=== PATIENT | male | born 1995 | race Caucasian/White ===

== ENCOUNTER 2017-03-26 11:39 | Emergency (ER) | payer BC ==
[2017-03-26 13:59] VITALS: BP 114/79
--- NOTE | 2017-03-26 14:53 | UC ---
Throat Pain/Nasal [place] HPI - HPI Summary HPI Summary: 6 days ago developed sore throat, vomited x 1, had temp to 100.5, malaise. Coughing and sore throat are resolving. Yesterday, had exposure to hot oven being cleaned, and developed right eye irritation. Awoke with drainage this morning. Vision normal, no photophobia. Right ear has felt weird and full since loud noise exposure (whistle) about a month ago. Tinnitus resolved, ear pops. no discharge, no vertigo, no headache. - History of Current Complaint Chief Complaint: UCGeneralIllness Stated Complaint: RED EYE/R EAR PAIN/SORE THROAT Time Seen by Provider: 03/26/17 14:43 Hx Obtained From: Patient Onset/Duration: Gradual Onset, Lasting Days - respiratory symptoms for 6 days, eye symptoms x 1 Severity: Moderate Cough: Nonproductive Associated Signs & Symptoms: Positive: Dysphagia - Allergies/Home Medications Allergies/Adverse Reactions: Allergies Allergy/AdvReac Type Severity Reaction Status Date / Time Bee Venom Allergy Mild Swelling Verified 03/26/17 12:01 No Known Allergies Allergy Verified 03/26/17 12:01 PMH/Surg Hx/FS Hx/Imm Hx Previously Healthy: Yes - Surgical History Surgical History: Yes Surgery Procedure, Year, and Place: oral surgery - Family History Known Family History: Positive: None - parents living and healthy - Social History Occupation: Student - senior at [employer]. Lives: Dormitory/Roommates Alcohol Use: Rare Substance Use Type: None Smoking Status (MU): Never Smoked Tobacco Review of Systems Constitutional: Other - decreased appetite. Skin: Negative Eyes: Negative ENT: Sore Throat, Ear Ache Respiratory: Cough Cardiovascular: Negative Gastrointestinal: Negative Genitourinary: Negative Motor: Negative Neurovascular: Negative Musculoskeletal: Negative Neurological: Negative Psychological: Negative Is Patient Immunocompromised?: No All Other Systems Reviewed And Are Negative: Yes Physical Exam Triage Information Reviewed: Yes Appearance: Well-Appearing, Thin Vital Signs: Initial Vital Signs Temp 98.3 F 03/26/17 11:56 Pulse 78 03/26/17 11:56 Resp 20 03/26/17 11:56 BP 102/71 03/26/17 11:56 Pulse Ox 100 03/26/17 11:56 Eyes: Positive: Conjunctiva Inflamed - right eye injected ++, with ENT: Positive: Pharyngeal erythema, Tonsillar swelling - mild, no exudate. Neck: Positive: Nontender, No Lymphadenopathy Respiratory: Positive: Lungs clear, Normal breath sounds Neurological Exam: Normal Neurological: Positive: Alert, Muscle Tone Normal Psychological Exam: Normal Skin Exam: Normal Throat Pain/Nasal Course/Dx - Course Course Of Treatment: right eye conjunctivitis will be treated with drops. Continue symptomatic tx of resolving respiratory illness. Discussed contagion and ways to decrease spread. - Differential Dx/Diagnosis Differential Diagnosis/HQI/PQRI: Influenza, Otitis Media, Tonsillitis, URI, Other - conjunctvitis. Provider Diagnoses: right eye acute bacterial conjunctivitis Discharge - Discharge Plan Condition: Stable Disposition: HOME Prescriptions: Tobramycin 0.3% OPHTH.DARRON* 1 drop RIGHT EYE Q4H #1 btl Patient Education Materials: Conjunctivitis (ED) Referrals: Binu Garcia MD [Primary Care Provider] - Additional Instructions: compress your eyes with a clean warm cloth, and apply 2 drops of medicated drops in the right eye every 3 to 4 hours today while awake, then 4 times daily for the next 4 days. Continue symptomatic treatment of your respiratory illness with fluids, rest, ibuprofen as needed.
== END 2017-03-26 15:25 | disposition home or self-care (01) ==
LOC: UCEAST 11:39
DX: H10.89 Other conjunctivitis (principal)
CPT/HCPCS: 99212; G0463

== ENCOUNTER 2017-08-22 01:54 | Emergency (ER) | payer BC ==
[2017-08-22] MEDS ORDERED: NS 0.9% 1000 ML* 1,000 ML IV ONE (04:03)
[2017-08-22] MEDS ORDERED: Metoprolol Tartrate IV* 1 MG/ML 5 ML VIAL IV ONE (04:04)
[2017-08-22] MEDS ORDERED: Aspirin 81 mg CHEW TAB* 81 MG TAB.CHEW PO ONE (04:05)
[2017-08-22 04:36] LABS: ABS Basophils 0 10^3/ul (0-0.2); ABS Eosinophils 0.1 10^3/ul (0-0.6); ABS Lymphocytes 2.2 10^3/ul (1.0-4.8); ABS Monocytes 0.7 10^3/ul (0-0.8); ABS Neutrophils 3.9 10^3/ul (1.5-7.7); ABS Nucleated RBC 0 10^3/ul; Eosinophil % 0.9 % (0-6); Hematocrit 42 % (42-52); Hemoglobin 14.7 g/dl (14.0-18.0); Lymphocyte % 32.4 % (25-47); Mean Corpuscular HGB Conc 35 g/dl (31-36); Mean Corpuscular Hemoglobin 30 pg (27-31); Mean Corpuscular Volume 84 fL (80-94); Mean Platelet Volume 8.5 um3 (7.4-10.4); Nucleated Red Blood Cells % 0; Platelet Count 272 10^3/ul (150-450); Red Blood Count 4.96 10^6/ul (4.0-5.4); Red Cell Distribution Width 13 % (10.5-15); White Blood Count 6.9 10^3/ul (3.5-10.8)
[2017-08-22] MEDS ORDERED: Metoprolol Tartrate TAB* 25 MG PO ONE (04:39)
[2017-08-22] MEDS ORDERED: Metoprolol Tartrate TAB* 25 MG ONE (04:41)
[2017-08-22 04:52] LABS: EGFR Non-African American 105.2 (>60)
[2017-08-22 06:19] VITALS: BP 131/70
--- NOTE | 2017-08-22 06:31 | ED ---
Ronnie Pak Nikita, scribed for Fidel Pitts MD on 08/22/17 at 0403 . HPI Chest Pain - HPI Summary HPI Summary: This patient is a 21 year old M presenting to ED with a chief complaint of generalized CP since 1 week ago. The CC is described as intermittent, cramping, and sharp after dinner at 1800 last night. The patient rates the pain 3/10 in severity. Symptoms aggravated by sitting and standing. Symptoms alleviated by nothing. Patient reports palpitations (1 week ago, beating harder, skipping beats, and slightly tachycardic), anxiety, and SOB with the palpitations. Patient denies SOB with the CP and diarrhea. - History of Current Complaint Chief Complaint: EDChestWallPain Time Seen by Provider: 08/22/17 03:42 Hx Obtained From: Patient Onset/Duration: Started Weeks Ago Timing: Intermittent Initial Severity: Mild Current Severity: Mild Pain Intensity: 3 Pain Scale Used: 0-10 Numeric Character: Sharp/Stabbing, Other: - carmping Aggravating Factor(s): Other: - sitting and standing Alleviating Factor(s): Nothing Associated Signs and Symptoms: Positive: Other: - Patient reports palpitations ( 1 week ago, beating harder, skipping beats, and slightly tachycardic), anxiety, and SOB with the palpitations. Patient denies SOB with the CP and diarrhea. - Allergy/Home Medications Allergies/Adverse Reactions: Allergies Allergy/AdvReac Type Severity Reaction Status Date / Time bee venom protein (honey bee) Allergy Swelling Verified 08/22/17 02:09 PMH/Surg Hx/FS Hx/Imm Hx Endocrine/Hematology History: Denies: Hx Diabetes, Hx Thyroid Disease Cardiovascular History: Denies: Hx Hypertension Respiratory History: Denies: Hx Asthma, Hx Chronic Obstructive Pulmonary Disease (COPD) GI History: Denies: Hx Ulcer - Surgical History Surgery Procedure, Year, and Place: oral surgery Infectious Disease History: No Infectious Disease History: Denies: Hx Clostridium Difficile, Hx Hepatitis, Hx Human Immunodeficiency Virus (HIV), Hx Shingles, Hx Tuberculosis, Hx Known/Suspected VRE, Hx Known/ Suspected VRSA, History Other Infectious Disease, Traveled Outside the [place] in Last 30 Days - Family History Known Family History: Positive: Cardiac Disease - Social History Alcohol Use: Rare Substance Use Type: Reports: None Smoking Status (MU): Never Smoked Tobacco Review of Systems Positive: Palpitations - 1 week ago, beating harder, skipping beats, and slightly tachycardic, Chest Pain - intermittent, cramping, and sharp after dinner at 1800 last night Positive: Shortness Of Breath - with palpitations, not with CP Negative: Diarrhea Positive: Anxious All Other Systems Reviewed And Are Negative: Yes Physical Exam - Summary Physical Exam Summary: Appearance: Well appearing, no pain distress Skin: warm, dry, reflects adequate perfusion Head/face: normal Eyes: EOMI, TOBI ENT: normal Neck: supple, non-tender Respiratory: CTA, breath sounds present Cardiovascular: RRR, pulses symmetrical, No extra beats on the monitor Abdomen: non-tender, soft Bowel Sounds: present Musculoskeletal: normal, strength/ROM intact Neuro: normal, sensory motor intact, A&Ox3 No thyromegaly nodules. Triage Information Reviewed: Yes Vital Signs On Initial Exam: Initial Vitals Temp Pulse Resp BP Pulse Ox 97.8 F 82 18 137/82 100 08/22/17 02:06 08/22/17 02:06 08/22/17 02:06 08/22/17 02:06 08/22/17 02:06 Vital Signs Reviewed: Yes Diagnostics - Vital Signs Vital Signs Temp Pulse Resp BP Pulse Ox 08/22/17 02:06 97.8 F 82 18 137/82 100 - Laboratory Lab Results: Lab Results 08/22/17 08/22/17 08/22/17 Range/Units 04:20 04:20 04:20 WBC 6.9 (3.5-10.8) 10^3/ul RBC 4.96 (4.0-5.4) 10^6/ul Hgb 14.7 (14.0-18.0) g/dl Hct 42 (42-52) % MCV 84 (80-94) fL MCH 30 (27-31) pg MCHC 35 (31-36) g/dl RDW 13 (10.5-15) % Plt Count 272 (150-450) 10^3/ul MPV 8.5 (7.4-10.4) um3 Neut % (Auto) 56.3 (38-83) % Lymph % (Auto) 32.4 (25-47) % [facility] % (Auto) 9.7 H (0-7) % Eos % (Auto) 0.9 (0-6) % Baso % (Auto) 0.7 (0-2) % Absolute Neuts (auto) 3.9 (1.5-7.7) 10^3/ul Absolute Lymphs (auto) 2.2 (1.0-4.8) 10^3/ul Absolute Monos (auto) 0.7 (0-0.8) 10^3/ul Absolute Eos (auto) 0.1 (0-0.6) 10^3/ul Absolute Basos (auto) 0 (0-0.2) 10^3/ul Absolute Nucleated RBC 0 10^3/ul Nucleated RBC % 0 D-Dimer, Quantitative < 200 (Less Than 230) ng/mL Sodium 135 L (139-145) mmol/L Potassium 3.7 (3.5-5.0) mmol/L Chloride 102 (101-111) mmol/L Carbon Dioxide 25 (22-32) mmol/L Anion Gap 8 (2-11) mmol/L BUN 15 (6-24) mg/dL Creatinine 0.91 (0.67-1.17) mg/dL Est GFR ( Amer) 135.3 (>60) Est GFR (Non-Af Amer) 105.2 (>60) BUN/Creatinine Ratio 16.5 (8-20) Glucose 103 H (70-100) mg/dL Lactic Acid (0.5-2.0) mmol/L Calcium 9.5 (8.6-10.3) mg/dL Total Bilirubin 0.60 (0.2-1.0) mg/dL AST 13 (13-39) U/L ALT 9 (7-52) U/L Alkaline Phosphatase 56 (34-104) U/L Total Creatine Kinase 59 (10-223) U/L Troponin I 0.00 (<0.04) ng/mL Total Protein 7.0 (6.4-8.9) g/dL Albumin 4.3 (3.2-5.2) g/dL Globulin 2.7 (2-4) g/dL Albumin/Globulin Ratio 1.6 (1-3) TSH 10.58 H (0.34-5.60) mcIU/mL Free T4 Pending Total T3 Pending 08/22/17 Range/Units 04:20 WBC (3.5-10.8) 10^3/ul RBC (4.0-5.4) 10^6/ul Hgb (14.0-18.0) g/dl Hct (42-52) % MCV (80-94) fL MCH (27-31) pg MCHC (31-36) g/dl RDW (10.5-15) % Plt Count (150-450) 10^3/ul MPV (7.4-10.4) um3 Neut % (Auto) (38-83) % Lymph % (Auto) (25-47) % [facility] % (Auto) (0-7) % Eos % (Auto) (0-6) % Baso % (Auto) (0-2) % Absolute Neuts (auto) (1.5-7.7) 10^3/ul Absolute Lymphs (auto) (1.0-4.8) 10^3/ul Absolute Monos (auto) (0-0.8) 10^3/ul Absolute Eos (auto) (0-0.6) 10^3/ul Absolute Basos (auto) (0-0.2) 10^3/ul Absolute Nucleated RBC 10^3/ul Nucleated RBC % D-Dimer, Quantitative (Less Than 230) ng/mL Sodium (139-145) mmol/L Potassium (3.5-5.0) mmol/L Chloride (101-111) mmol/L Carbon Dioxide (22-32) mmol/L Anion Gap (2-11) mmol/L BUN (6-24) mg/dL Creatinine (0.67-1.17) mg/dL Est GFR ( Amer) (>60) Est GFR (Non-Af Amer) (>60) BUN/Creatinine Ratio (8-20) Glucose (70-100) mg/dL Lactic Acid 0.8 (0.5-2.0) mmol/L Calcium (8.6-10.3) mg/dL Total Bilirubin (0.2-1.0) mg/dL AST (13-39) U/L ALT (7-52) U/L Alkaline Phosphatase (34-104) U/L Total Creatine Kinase (10-223) U/L Troponin I (<0.04) ng/mL Total Protein (6.4-8.9) g/dL Albumin (3.2-5.2) g/dL Globulin (2-4) g/dL Albumin/Globulin Ratio (1-3) TSH (0.34-5.60) mcIU/mL Free T4 Total T3 Result Diagrams: 08/22/17 04:20 08/22/17 04:20 Lab Statement: Any lab studies that have been ordered have been reviewed, and results considered in the medical decision making process. - Radiology CXR Radiology Interpretation Completed By: ED Physician - No acute pulmonary disease. Normal mediastinum. - EKG 0154 Cardiac Rate: NL - 82 bpm EKG Rhythm: Sinus Rhythm ST Segment: Normal EKG Interpretation: Normal axis, Normal intervals Re-Evaluation - Re-Evaluation First Eval Re-Evaluation Time: 05:53 Comment: Discussed results and discharge plan with the patient. The patient feels fine. He reports that his palpitations has actually been going on for a couple of weeks and have gotten better recently. Chest Pain Course/Dx - Course Course Of Treatment: pt with several weeks of intermittent palpitations, now improving but today with short duration of CP. ddimer and trop not detected. EKG normal. Tx with oral metoprolol. HR 80s. TSH found to be elevated -- possible that this represents the hypothyroid phase of Sussy's. Added T3, FT4 to labs. F/U later today at [facility]. - Chest Pain Differential Diagnosis/HQI/PQRI: Acute [place], ACS, GI Disease, Lower Respiratory Infection, Pulmonary Embolism, Other: - hypothyroidism - Diagnoses Provider Diagnoses: Hypothyroidism, Atypical chest pain Discharge - Sign-Out/Discharge Documenting (check all that apply): Discharge - Discharge Plan Condition: Improved Disposition: HOME Patient Education Materials: Chest Pain (ED), Hypothyroidism (ED), Autoimmune Thyroid Disorders (ED) Referrals: [facility] [Provider Group] Additional Instructions: Go today as scheduled for recheck -- have them review your tests from here. TSH was 10.6. Remainder of thyroid studies were pending at discharge. They likely will need to prescribe you medications. Return with trouble breathing, palpitations, worse or other concerns. - Billing Disposition and Condition Condition: IMPROVED Disposition: HOME The documentation as recorded by the Ronnie soni Nikita accurately reflects the service I personally performed and the decisions made by me, Fidel Pitts MD.
--- NOTE | 2017-08-22 08:13 | RAD ---
INDICATION: Chest pain. COMPARISON: There are no prior studies available for comparison. TECHNIQUE: Dual-energy PA and lateral views of the chest were obtained. FINDINGS: The heart is within normal limits in size. Mediastinal and hilar contours appear within normal limits. The lungs are clear. No pleural effusion or pneumothorax is seen. IMPRESSION: NO EVIDENCE FOR ACTIVE CARDIOPULMONARY DISEASE.
== END 2017-08-22 06:17 | disposition home or self-care (01) ==
LOC: ED 01:54
DX: E03.9 Hypothyroidism, unspecified (principal); R07.89 Other chest pain
CPT/HCPCS: 36415; 71046; 80053; 82550; 83605; 84439; 84443; 84479; 84484; 85025; 85379; 93005; 96360; 96374; 99284; A9270-GY